=== PATIENT | female | born 1985 | race Caucasian/White ===

== ENCOUNTER 2022-07-30 18:13 | Emergency (ER) | payer BC, SELFPAY ==
[2022-07-30 18:13] VITALS: BP 124/71; PULSE 76; RESP 18; O2SAT 98; BMI 25.4
[2022-07-30 18:24] VITALS: BMI 25.4
--- NOTE | 2022-07-30 18:37 | [facility].EDGENADL ---
Discharge Plan Disposition Patient Disposition: Home, Self-Care Prescriptions Prescriptions: New omeprazole magnesium [Prilosec OTC] 20 mg tablet,delayed release (DR/EC) 20 mg PO DAILY 28 Days Qty: 28 0RF No Action calcium carbonate-vitamin D3 600 mg-10 mcg (400 unit) tablet PO Label Comments: TAKE 1 TABLET BY MOUTH TWICE A DAY fluoxetine 10 mg capsule 10 mg PO DAILY Label Comments: TAKE 1 CAPSULE BY MOUTH EVERY DAY norethindrone (contraceptive) 0.35 mg tablet 0.35 mg PO DAILY naproxen 500 mg tablet 500 mg PO BID Label Comments: TAKE 1 TABLET BY MOUTH TWICE A DAY WITH MEALS levothyroxine 137 mcg tablet 137 mcg PO DAILY Label Comments: TAKE 1 TABLET BY MOUTH EVERY DAY ergocalciferol (vitamin D2) 1,250 mcg (50,000 unit) capsule 1,250 mcg PO DAILY trazodone 50 mg tablet 50 mg PO DAILY PRN Label Comments: TAKE 1 TABLET BY MOUTH EVERY DAY AT BEDTIME NEEDED FOR SLEEP Thera-Tabs Tablet 1 tab PO DAILY Label Comments: TAKE 1 TABLET BY MOUTH EVERY DAY (DME) FC2 Female Condom Misc See Rx Instructions .ROUTE .MEDSUPPLY Qty: 12 Rx Instructions: As directed ibuprofen 600 mg tablet 600 mg PO Q6H PRN Label Comments: TAKE 1 TABLET BY MOUTH EVERY 6 HOURS NEEDED FOR PAIN cefdinir 300 mg capsule 300 mg PO BID Qty: 20 0RF promethazine-DM 6.25-15 mg/5 mL syrup 5 ml PO Q4-6H PRN (Reason: cough) Qty: 240 0RF Referrals Follow up/Referrals: Provider,Referral, MD [Primary Care Provider] - See instructions Activity Restrictions/Add. Instructions Additional Instructions/Restrictions: Return for worsening abdominal pain vomiting or any other concerns within the next 8 hours. Follow-up with your primary care physician within the next few days otherwise Clinical Impressions Clinical Impression: Abdominal pain Instructions Patient Instructions: DI for Acute Abdominal Pain Discharge ED Provider: Bulmaro Olivo General Adult HPI General Chief complaint: Abdominal Pain Stated complaint: Abdominal Pain Time Seen by Provider: 07/30/22 18:15 History of Present Illness HPI narrative: 36-year-old female presents with epigastric abdominal pain since this morning. She says the pain is dull nonradiating no right upper quadrant tenderness. Not associated with vomiting or diarrhea. No GI bleeding no fever. She says she had a similar issue back when she had a thyroid problem however pain is not been this bad. No radiation to right lower quadrant. No dysuria or hematuria Related Data Home Medications Medication Instructions Recorded Confirmed calcium carbonate 600 mg-vitamin ea PO 02/12/22 02/12/22 D3 10 mcg (400 unit) tablet condoms - female (FC2 Female #12 ea 02/12/22 02/12/22 Condom) ergocalciferol (vitamin D2) 1,250 1,250 mcg PO DAILY 02/12/22 02/12/22 mcg (50,000 unit) capsule fluoxetine 10 mg capsule 10 mg PO DAILY 02/12/22 02/12/22 ibuprofen 600 mg tablet 600 mg PO Q6H PRN 02/12/22 02/12/22 levothyroxine 137 mcg tablet 137 mcg PO DAILY 02/12/22 02/12/22 naproxen 500 mg tablet 500 mg PO BID 02/12/22 02/12/22 norethindrone (contraceptive) 0.35 0.35 mg PO DAILY 02/12/22 02/12/22 mg tablet therapeutic multivitamin 1 tab PO DAILY 02/12/22 02/12/22 (Thera-Tabs tablet) trazodone 50 mg tablet 50 mg PO DAILY PRN 02/12/22 02/12/22 Previous Rx's Medication Instructions Recorded cefdinir 300 mg capsule 300 mg PO BID #20 caps 02/12/22 promethazine-DM 6.25 mg-15 mg/5 mL 5 ml PO Q4-6H PRN cough #240 mL 02/12/22 oral syrup omeprazole magnesium 20 mg 20 mg PO DAILY 4 weeks #28 tabs 07/30/22 tablet,delayed release (Prilosec OTC) Allergies Allergy/AdvReac Type Severity Reaction Status Date / Time AMOXICILLIN Allergy Unknown GASTRITIS Uncoded 02/12/22 10:13 HYDROCODONE Allergy Unknown I-HIVES Uncoded 02/12/22 10:13 [facility] Disclaimer: The information contained in
[2022-07-30 18:47] LABS: Basophils % 0.1 % (0.1-2.0); Eosinophils # 0.2 K/mm3 (0.0-0.4); Hematocrit 41.5 % (37.0-47.0); Hemoglobin 13.4 g/dL (12.2-16.2); Lymphocytes # 1.1 K/mm3 (0.7-4.5); Lymphocytes % 9.4 % (10-50); Mean Corpuscular HGB Conc 32.4 g/dL (31.8-35.4); Mean Corpuscular Hemoglobin 31.5 pg (27.0-31.2); Mean Corpuscular Volume 97.4 fl (81-99); Mean Platelet Volume 8.2 fl (7.4-10.4); Monocytes # 0.3 K/mm3 (0.1-1.0); Monocytes % 2.8 % (1.7-9.3); Neutrophils # 9.9 K/mm3 (1.8-7.8); Neutrophils % 85.7 % (37.0-80.0); Platelet Count 295 K/mm3 (142-424); Red Blood Count 4.26 M/mm3 (4.20-5.40); Red Cell Distribution Width 13.9 % (11.5-17.5); White Blood Count 11.6 K/mm3 (4.8-10.8)
[2022-07-30 18:50] LABS: MANUAL DIFFERENTIAL MANUAL DIFFERENTIAL (MANUAL DIFF)
[2022-07-30 19:06] LABS: Chloride 102 mmol/L (98-107); Sodium 141 mmol/L (136-145)
[2022-07-30 19:08] LABS: Alanine Aminotransferase 34 U/L (12-78); Amylase 78 U/L (30-110); Aspartate Amino Transferase 46 U/L (14-36); Bilirubin,Total 0.7 mg/dl (0.2-1.3); Blood Urea Nitrogen 17 mg/dl (7-17); Creatinine Clearance Estimated 132 mL/min (50-200); Estimated Glomerular Filt Rate 112 ml/min (>60); GFR (African American) 136 ML/MIN (>60)
[2022-07-30 19:09] LABS: Albumin/Globulin Ratio 1.5 (1.1-1.8); Alkaline Phosphatase 87 U/L (38-126); Calcium 10.1 mg/dl (8.4-10.2); Carbon Dioxide 17 mmol/L (22.0-30.0); Globulin 3.4 g/dL (1.3-3.2); Glucose 135 mg/dl (74-100); Lipase 39 U/L (23-300); Total Protein,Serum 8.4 g/dl (6.3-8.2)
[2022-07-30 19:17] LABS: HCG Qualitative, Serum Negative (Negative); Lactic Acid 3.1 mmol/L (0.7-2.1)
[2022-07-30 19:44] LABS: Lymphocytes % 12 % (10-50); Monocytes % 1 % (2-9); Neutrophils % 87 % (42-76); Platelet Estimate Normal; RBC Morphology Normal; Total Cells Counted 100
[2022-07-30 19:55] VITALS: BP 115/78; PULSE 72; RESP 16; TEMP 36.6; O2SAT 98
== END 2022-07-30 19:56 | disposition home or self-care (01) ==
PROVIDERS: Emergency Provider Emergency Medicine
DX: R10.11 Right upper quadrant pain (principal); F17.200 Nicotine dependence, unspecified, uncomplicated
CPT/HCPCS: 36415; 80053; 82150; 83605; 83690; 84703; 85007; 85025; 96361; 96374; 96375; 99284; 99285